=== PATIENT | female | born 1995 ===

== ENCOUNTER 2018-03-17 06:41 | Emergency (ER) | payer OTHER ==
[2018-03-17 06:41] VITALS: BMI 28.0
[2018-03-17 06:58] VITALS: TEMP 97.5
[2018-03-17] MEDS ORDERED: Sodium Chloride 0.9% 1,000 ML IV STA (08:05)
--- NOTE | 2018-03-17 08:07 | ED PDOC ---
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 Patient reports she has also vomited twice. She states that almost everything she eats exacerbates her symptoms. Her LMNP was the 02 of March and she denies the possibility of being . Also denies diarrhea and other complaints. PMD: none provided Abnormal Vaginal Bleeding: No Last Menstral Period: 03/02/2018 Past Medical History Reviewed: Historical Data, Nursing Documentation, Vital Signs Vital Signs: Last Vital Signs Temp 97.5 F L 03/17/18 06:50 Pulse 92 H 03/17/18 06:50 Resp 17 03/17/18 06:50 BP 124/74 03/17/18 06:50 Pulse Ox 98 03/17/18 06:50 - Medical History PMH: No Chronic Diseases - Surgical History Surgical History: No Surg Hx - Family History Family History: States: Unknown Family Hx - Social History Current smoker - smoking cessation education provided: No Alcohol: None Drugs: Denies - Immunization History Hx Tetanus Toxoid Vaccination: No Hx Influenza Vaccination: No Hx Pneumococcal Vaccination: No - Home Medications Home Medications: Ambulatory Orders Medication Instructions Recorded RX: Acyclovir 400 mg PO TID #30 tablet 01/03/17 RX: Ibuprofen [Motrin Tab] 600 mg PO TID PRN #30 tab 01/03/17 Famotidine [Pepcid] 20 mg PO DAILY PRN #10 tab 03/17/18 - Allergies Allergies/Adverse Reactions: Allergies Allergy/AdvReac Type Severity Reaction Status Date / Time No Known Allergies Allergy Verified 12/27/16 16:54 Review of Systems ROS Statement: Except As Marked, All Systems Reviewed And Found Negative Constitutional: Negative for: Fever Gastrointestinal: Positive for: Vomiting, Abdominal Pain. Negative for: Diarrhea Physical Exam - Reviewed Nursing Documentation Reviewed: Yes Vital Signs Reviewed: Yes - Physical Exam Appears: Positive for: Non-toxic, No Acute Distress Head Exam: Positive for: ATRAUMATIC, NORMAL INSPECTION, NORMOCEPHALIC Skin: Positive for: Normal Color, Warm, Dry Eye Exam: Positive for: EOMI, Normal appearance, PERRL ENT: Positive for: Normal ENT Inspection Neck: Positive for: Normal, Painless ROM, Supple Cardiovascular/Chest: Positive for: Regular Rate, Rhythm. Negative for: Murmur Respiratory: Positive for: Normal Breath Sounds. Negative for: Respiratory Distress Gastrointestinal/Abdominal: Positive for: Bowel Sounds, Soft, Tenderness (mild RUQ and mild mid epigastric tenderness - no RLQ tenderness). Negative for: Mass, Distended, Rebound Back: Positive for: Normal Inspection. Negative for: L CVA Tenderness, R CVA Tenderness Extremity: Positive for: Normal ROM (x 4). Negative for: Deformity Neurologic/Psych: Positive for: Alert, Oriented. Negative for: Motor/Sensory Deficits - Laboratory Results Result Diagrams: 03/17/18 07:50 03/17/18 07:50 - ECG O2 Sat by Pulse Oximetry: 98 (RA) Pulse Ox Interpretation: Normal Medical Decision Making Medical Decision Makin:58 Impression: abdominal pain and vomiting rule out gallstones vs gastritis Initial Plan: --Beta HCG --CMP --Lipase --CBC --NS IV --Pepcid 20 mg IVP --Urine cx --UA --Gallbladder US 10:35 --Labs do not show any significant findings. Awaiting results of gallbladder US. 11:04 Gallbladder US FINDINGS: LIVER: Measures 13.8 cm in length. Normal echogenicity of the liver parenchyma. No mass. No intrahepatic bile duct dilatation. GALLBLADDER: Unremarkable. No gallstones. COMMON BILE DUCT: Measures 3.1 mm. No stones. No dilatation. PANCREAS: Unremarkable as visualized. No mass. No ductal dilatation. RIGHT KIDNEY: Measures 4.9 x 12.6 cm in length. Normal echogenicity. No calculus, mass, or hy dronephrosis. AORTA: No aneurysmal dilatation. IVC: Unremarkable. OTHER FINDINGS: None . IMPRESSION: Unremarkable study. 11:20 --Upon reevaluation, pt is sleeping comfortably in no distress. pt tolerated po . abdomen is soft and non tender; no RLQ tenderness, and RUQ tenderness previously noted is resolved. She is feeling better and tolerating PO. 11:31 --Patient requires no further treatment in the ED at this time and is stable. She will be discharged home with Pepcid. ambulating with steady gait. pt Given clear instructions on return if pain returns, if you get fever, or vomiting oc curs return to the ED immediately. Diagnosis is gastritis. pt has no pcp, referred to clinic ----- Scribe Attestation: Documented by Jasmin Dixon acting as a scribe for Seferino Le MD Provider Scribe Attestation: All medical record entries made by the Scribe were at my direction and personally dictated by me. I have reviewed the chart and agree that the record accurately reflects my personal performance of the history, physical exam, medical decision making, and the department course for this patient. I have also personally directed, reviewed, and agree with the discharge instructions and di sposition. Disposition - Clinical Impression Clinical Impression: Gastritis - Patient ED Disposition Is Patient to be Admitted: No Counseled Patient/Family Regarding: Studies Performed, Diagnosis, Need For Followup - Disposition Referrals: [facility] [Outside] [facility] [Outside] Disposition: Routine/Home Disposition Time: 11:31 Condition: IMPROVED Additional Instructions: Seguimiento en la clnica en 1-2 andrade para reevaluacin. volver a la rhona de urgencias con cualquier empeoramiento o sntomas relacionados, anjana ms dolor abdominal, vmitos o fiebre Prescriptions: Famotidine [Pepcid] 20 mg PO DAILY PRN #10 tab PRN Reason: Heartburn Instructions: Gastritis (DC) Forms: [employer] (Dutch), [employer] (Arabic) Print Language: ALGERIAN
[2018-03-17 08:18] LABS: BASO % 0.6 % (0.0-2.0); EOS # 0.2 K/uL (0.0-0.7); EOS % 2.7 % (0.0-4.0); HEMOGLOBIN 13.9 g/dL (12.0-16.0); LYMPH # 1.6 K/uL (1.0-4.3); LYMPH % 20.5 % (20.0-40.0); MEAN CELL VOLUME 79.2 fl (81.0-99.0); MEAN CORPUSCULAR HEMOGLOBIN 27.1 pg (27.0-31.0); MEAN CORPUSCULAR HGB CONC 34.2 g/dL (33.0-37.0); MEAN PLATELET VOLUME 9.8 fl (7.2-11.7); MONO # 0.3 K/uL (0.0-0.8); MONO % 3.8 % (0.0-10.0); NEUT # 5.6 K/uL (1.8-7.0); NEUT % 72.4 % (50.0-75.0); RBC 5.14 Mil/uL (3.80-5.20); RED CELL DISTRIBUTION WIDTH 13.5 % (11.5-14.5); WHITE BLOOD COUNT 7.8 K/uL (4.8-10.8)
[2018-03-17 08:48] LABS: SQUAMOUS EPITHIAL 7 /hpf (0-5); URINE BACTERIA RARE (<OCC); URINE BILIRUBIN NEGATIVE (NEGATIVE); URINE BLOOD NEGATIVE (NEGATIVE); URINE CLARITY CLOUDY (Clear); URINE COLOR YELLOW (YELLOW); URINE GLUCOSE (UA) NEG (Normal); URINE LEUKOCYTE ESTERASE NEG Leu/uL (Negative); URINE PROTEIN NEGATIVE (NEGATIVE); URINE UROBILINOGEN 0.2-1.0 mg/dL (0.2-1.0)
[2018-03-17 08:51] LABS: ALB/GLOB RATIO 1.3 (1.0-2.1); ALBUMIN 4.5 g/dL (3.5-5.0); ALT/SGPT 32 U/L (9-52); AST/SGOT 31 U/L (14-36); BLOOD UREA NITROGEN 9 mg/dl (7-17); CALCIUM 9.6 mg/dL (8.4-10.2); GFR NON-AFRICAN AMERICAN > 60; LIPASE 90 U/L (23-300)
--- NOTE | 2018-03-17 11:05 | US ---
Date of service: 03/17/2018 HISTORY: Right upper quadrant, abdominal pain. COMPARISON: None. TECHNIQUE: Sonographic evaluation of the right upper quadrant of the abdomen. FINDINGS: LIVER: Measures 13.8 cm in length. Normal echogenicity of the liver parenchyma. No mass. No intrahepatic bile duct dilatation. GALLBLADDER: Unremarkable. No gallstones. COMMON BILE DUCT: Measures 3.1 mm. No stones. No dilatation. PANCREAS: Unremarkable as visualized. No mass. No ductal dilatation. RIGHT KIDNEY: Measures 4.9 x 12.6 cm in length. Normal echogenicity. No calculus, mass, or hydronephrosis. AORTA: No aneurysmal dilatation. IVC: Unremarkable. OTHER FINDINGS: None . IMPRESSION: Unremarkable study.
[2018-03-17 11:48] VITALS: BP 113/69; PULSE 73; RESP 16
[2018-03-17 13:55] VITALS: O2SAT 98
== END 2018-03-17 12:19 | disposition home or self-care (01) ==
LOC: H.ER 06:41
DX: K29.70 Gastritis, unspecified, without bleeding (principal)
CPT/HCPCS: 76705; 80053; 81003; 81025; 83690; 84702; 85025; 87086; 96361; 96374; 99284; J7030